=== PATIENT | female | born 1955 | race Caucasian/White ===

== ENCOUNTER 2022-08-07 14:52 | Emergency (ER) | payer MEDICARE, OTHER, SELFPAY ==
[2022-08-07 15:30] VITALS: BP 131/86; PULSE 86; RESP 16; TEMP 36.6; O2SAT 97; BMI 35.2
[2022-08-07 15:43] LABS: Apearance,Urine Cloudy (Clear); Bilirubin,Urine 1+ (Negative); Blood, Urine Negative (Negative); Color,Urine Red (Yellow); Glucose,Urine (UA) 100 (Negative); Ketones,Urine 15 (Negative); PH,Urine 6.5 (5.0-8.5); Protein,Urine 1+ (Negative); Urobilinogen,Urine >=8 EU/dl (0.2)
[2022-08-07 15:44] LABS: UTC Leukocyte Esterase,Urine 3+ (Negative); UTC Nitrate,Urine Positive (Negative)
--- NOTE | 2022-08-07 16:13 | EXP.UTC ---
Discharge Plan Disposition Patient Disposition: Home, Self-Care Condition: Good Prescriptions Prescriptions: New cefdinir 300 mg capsule 300 mg PO BID 7 Days Qty: 14 0RF phenazopyridine [Pyridium] 200 mg tablet 200 mg PO Q8H 2 Days Qty: 6 0RF Referrals Follow up/Referrals: Jeremias Tay [Primary Care Provider] - See instructions Activity Restrictions/Add. Instructions Additional Instructions/Restrictions: *Increase fluids. Water not Soda or Tea *Start antibiotic immediately and be sure to take as ordered for the FULL length of time although you should start to see improvement over the next 48 hours *Pyridium as needed Remember this medication will turn your urine . This is normal but it will stain what ever it gets on *You should not use Pyridium for more than 48 hours. If so , follow up with your primary physician to review urine culture and ensure that antibiotic is adequate for infection *Be SURE to follow up anytime for new or worsening symptoms with your family doctor. AND in 48 hours for urine culture results with your family doctor, if you do not have a doctor then you may call back to the [facility] for urine culture results and further treatment. We do recommend that you choose and establish care with a Primary Care Physician. ?AND follow up with them ?in 10-14 days to repeat UA to ensure infection is resolved and blood no longer present *Be sure to let your PCP know that we sent urine cultures from the [facility] so they can follow up to ensure that you area the on the correct antibiotic Call your doctor office and make appointment for 48 hours (2 days from today) ?to follow up and get the results of your urine culture and further treatment Clinical Impressions Clinical Impression: UTI (urinary tract infection) Qualifiers: Urinary tract infection type: site unspecified Hematuria presence: with hematuria Qualified Code(s): N39.0 - Urinary tract infection, site not specified Instructions Patient Instructions: Urinary Tract Infection, DI for Urinary Tract Infection (UTI) Discharge ED Provider[place] [facility] [place] General Stated complaint: possible UTI Mode of Arrival: Ambulatory Source of Information: Patient Limitations: No Limitations Time Seen by Provider: 08/07/22 16:13 Description of Symptoms (Recalled from Triage Doc. by RN): PATIENT C/O URGENCY AND BURNING WITH URINATION X 2 DAYS HEENT Symptoms (Recalled from RN notes): No Resp Symptoms (Recalled from RN notes): No Skin Symptoms (Recalled from RN notes): No MS Symptoms (Recalled from RN notes): No Functional Status (Recalled from RN notes): WNL History of Present Illness Provider Complaint: Patient state that for the last couple of days she has been having burning with urination and feeling of urgency and frequency States that she feels like she does when she has a UTI Related Data Previous Rx's Medication Instructions Recorded cefdinir 300 mg capsule 300 mg PO BID 7 days #14 caps 08/07/22 phenazopyridine 200 mg tablet 200 mg PO Q8H pain 2 days #6 tabs 08/07/22 (Pyridium) Allergies Allergy/AdvReac Type Severity Reaction Status Date / Time No Known Allergies Allergy Verified 08/07/22 15:49 Worker's Comp Is this a Worker's Comp case?: No PFSH [facility] Medical History (Updated 08/07/22 @ 16:15 by Katie Bowen APRN) Diabetes mellitus type 1 Hypertension Surgical History (Updated 08/07/22 @ 15:45 by Callie Goode RN) History of cholecystectomy Social History (Updated 08/07/22 @ 15:46 by Callie Goode RN) Smoking Status: Unknown if ever smoked alcohol intake: never current occupational status: other Travel in the last 8 weeks: None ROS Obtained: Yes All systems reviewed & no additional complaints except as documented and Yes Systems reviewed as appropriate & no additional complaints except as documented Constitutional Constitutional: Reports system reviewed and no additional complaints, except as documented, Rep
[2022-08-07 16:20] VITALS: BP 131/86; PULSE 86; RESP 16; TEMP 36.6; O2SAT 97
== END 2022-08-07 16:22 | disposition home or self-care (01) ==
PROVIDERS: Emergency Provider Nurse Practitioner; PCP Pediatrics
DX: N39.0 Urinary tract infection, site not specified (principal)
CPT/HCPCS: 81003; 99212; G0463

== ENCOUNTER 2023-05-18 15:51 | Emergency (ER) | payer MEDICARE, OTHER, SELFPAY ==
--- NOTE | 2023-05-18 15:55 | XR_ITS ---
FINAL REPORT CLINICAL HISTORY: PAIN COMPARISON: None FINDINGS: 3 views right knee: There is no acute fracture or dislocation. There is mild degenerative change of the medial and patellofemoral compartments. There is no soft tissue abnormality. IMPRESSION: Mild degenerative change, no acute abnormality. Reviewed, Interpreted and Dictated by Emily Quan MD Transcribed by Lidia Taylor Authenticated and [facility]
[2023-05-18 16:40] VITALS: BP 168/88; PULSE 70; RESP 20; TEMP 36.7; O2SAT 97; BMI 34.5
--- NOTE | 2023-05-18 17:28 | EXP.UTC ---
Discharge Plan Disposition Patient Disposition: Home, Self-Care Condition: Good Prescriptions Prescriptions: No Action metformin 500 mg tablet 500 mg PO DAILY Patient Comments: TAKE 1 TABLET BY MOUTH EVERY DAY meloxicam 15 mg tablet 15 mg PO DAILY Patient Comments: TAKE 1 TABLET BY MOUTH EVERY DAY chlorthalidone 25 mg tablet 25 mg PO DAILY Patient Comments: TAKE 1 TABLET BY MOUTH EVERY DAY glimepiride 2 mg tablet 2 mg PO DAILY Patient Comments: TAKE 1 TABLET BY MOUTH EVERY DAY IN THE MORNING ramipril 10 mg capsule 10 mg PO DAILY Patient Comments: TAKE 1 CAPSULE BY MOUTH EVERY DAY Referrals Follow up/Referrals: Jeremias Tay [Primary Care Provider] - See instructions Activity Restrictions/Add. Instructions Additional Instructions/Restrictions: Take Tylenol arthritis as needed for pain. Keep appointment with PCP on Tuesday. Clinical Impressions Clinical Impression: Left knee DJD Qualifiers: Osteoarthritis type: unspecified Qualified Code(s): M17.12 - Unilateral primary osteoarthritis, left knee Instructions Patient Instructions: DI for Knee Pain Discharge ED Provider: Melissa Richardson [facility] [place] General Stated complaint: RT knee pain Mode of Arrival: Ambulatory Source of Information: Patient Limitations: No Limitations Time Seen by Provider: 05/18/23 17:28 Description of Symptoms (Recalled from Triage Doc. by RN): PATIENT C/O PAIN TO INSIDE OF RIGHT KNEE X 3-4 WEEKS. NO KNOWN INJURY HEENT Symptoms (Recalled from RN notes): No Resp Symptoms (Recalled from RN notes): No Skin Symptoms (Recalled from RN notes): No MS Symptoms (Recalled from RN notes): Yes Functional Status (Recalled from RN notes): WNL History of Present Illness Provider Complaint: Pt reports that her knee has been hurting for the last 3-4 weeks. She reports that she has had a history of arthritis, but this has hurt more than usual. Related Data Home Medications Medication Instructions Recorded Confirmed chlorthalidone 25 mg tablet 25 mg PO DAILY . 05/18/23 05/18/23 glimepiride 2 mg tablet 2 mg PO DAILY Diabetes 05/18/23 05/18/23 meloxicam 15 mg tablet 15 mg PO DAILY Pain 05/18/23 05/18/23 metformin 500 mg tablet 500 mg PO DAILY Diabetes 05/18/23 05/18/23 ramipril 10 mg capsule 10 mg PO DAILY . 07/26/23 07/26/23 Allergies Allergy/AdvReac Type Severity Reaction Status Date / Time No Known Allergies Allergy Verified 08/07/22 15:49 Worker's Comp Is this a Worker's Comp case?: No [facility] Disclaimer: The information contained in this section may have been updated after the patient was seen, as this information can be updated by other users. Medical History (Updated 05/18/23 @ 17:45 by Melissa Richardson APRN) Diabetes mellitus type 1 Hypertension Surgical History (Updated 08/07/22 @ 15:45 by Callie Goode RN) History of cholecystectomy Social History (Updated 08/07/22 @ 16:20 by Katie Bowen APRN) Smoking Status: Unknown if ever smoked alcohol intake: never current occupational status: other Travel in the last 8 weeks: None ROS Obtained: Yes All systems reviewed & no additional complaints except as documented Constitutional Constitutional: Reports system reviewed and no additional complaints, except as documented Eyes Eyes: Reports system reviewed and no additional complaints, except as documented ENT Ears, Nose, Mouth, and Throat: Reports system reviewed and no additional complaints, except as documented Cardiovascular Cardiovascular: Reports system reviewed and no additional complaints, except as documented Respiratory Respiratory: Reports system reviewed and no additional complaints, except as documented Gastrointestinal Gastrointestingal: Reports system reviewed and no additional complaints, except as documented Genitourinary Female Genitourinary: Reports system reviewed and no additional complaints, except as documented Musculosk
[2023-05-18 17:46] VITALS: BP 168/88; PULSE 70; RESP 20; TEMP 36.7; O2SAT 97
== END 2023-05-18 17:49 | disposition home or self-care (01) ==
PROVIDERS: Emergency Provider Nurse Practitioner Family; PCP Pediatrics
DX: M17.11 Unilateral primary osteoarthritis, right knee (principal); I10 Essential (primary) hypertension; E11.9 Type 2 diabetes mellitus without complications; Z79.84 Long term (current) use of oral hypoglycemic drugs
CPT/HCPCS: 73562; 99212; 99214; G0463

== ENCOUNTER 2023-09-06 09:01 | Emergency (ER) | payer MEDICARE, OTHER, SELFPAY ==
[2023-09-06 09:10] VITALS: BP 188/93; PULSE 64; RESP 18; TEMP 36.8; O2SAT 96; BMI 33.9
--- NOTE | 2023-09-06 09:16 | EXP.UTC ---
Discharge Plan Disposition Patient Disposition: Home, Self-Care Condition: Good Prescriptions Prescriptions: New phenazopyridine [Pyridium] 200 mg tablet 200 mg PO Q8H 2 Days Qty: 6 0RF benzonatate [benzonatate] 100 mg capsule 100 mg PO TIDP PRN (Reason: Cough) Qty: 30 0RF methylprednisolone 4 mg Tablets,Dose Pack 4 mg PO DIRECTED Qty: 21 0RF cefdinir 300 mg capsule 300 mg PO BID Qty: 20 0RF No Action metformin 500 mg tablet 500 mg PO DAILY Patient Comments: TAKE 1 TABLET BY MOUTH EVERY DAY meloxicam 15 mg tablet 15 mg PO DAILY Patient Comments: TAKE 1 TABLET BY MOUTH EVERY DAY chlorthalidone 25 mg tablet 25 mg PO DAILY Patient Comments: TAKE 1 TABLET BY MOUTH EVERY DAY glimepiride 2 mg tablet 2 mg PO DAILY Patient Comments: TAKE 1 TABLET BY MOUTH EVERY DAY IN THE MORNING ramipril 10 mg capsule 10 mg PO DAILY Patient Comments: TAKE 1 CAPSULE BY MOUTH EVERY DAY Referrals Follow up/Referrals: Jeremias Tay [Primary Care Provider] - See instructions Activity Restrictions/Add. Instructions Additional Instructions/Restrictions: Drink plenty of fluids. Take tylenol or ibuprofen for pain or fever. Take the medications as directed. Follow up with your regular doctor. GO TO THE ER FOR ANY WORSENING SYMPTOMS The pyridium will make your urine turn orange, this is an expected side effect. It will stain your clothes if it comes into contact with them. We will culture the urine. That will tell what bacteria is causing your infection and which antibiotics will treat it best. Sometimes the first antibiotic we prescribe turns out to not work against different bacteria. So, make sure you follow up within 3 days if you are not getting better. Clinical Impressions Clinical Impression: UTI (urinary tract infection), Sinusitis Instructions Patient Instructions: Sinusitis, DI for Sinusitis Discharge ED Provider: Joe Yanes [facility] General Stated complaint: possible UTI, congestion Time Seen by Provider: 09/06/23 09:16 History of Present Illness Provider Complaint: She states that for the past 1 week she has had sinus congestion and a productive cough. She states that for the past 3 days she has developed dysuria, low back pain and urinary frequency. Related Data Home Medications Medication Instructions Recorded Confirmed chlorthalidone 25 mg tablet 25 mg PO DAILY . 05/18/23 05/18/23 glimepiride 2 mg tablet 2 mg PO DAILY Diabetes 05/18/23 05/18/23 meloxicam 15 mg tablet 15 mg PO DAILY Pain 05/18/23 05/18/23 metformin 500 mg tablet 500 mg PO DAILY Diabetes 05/18/23 05/18/23 ramipril 10 mg capsule 10 mg PO DAILY . 05/18/23 05/18/23 Previous Rx's Medication Instructions Recorded benzonatate 100 mg capsule 100 mg PO TIDP PRN Cough #30 caps 09/06/23 cefdinir 300 mg capsule 300 mg PO BID #20 caps 09/06/23 methylprednisolone 4 mg tablets in 4 mg PO DIRECTED #21 tabs 09/06/23 a dose pack phenazopyridine 200 mg tablet 200 mg PO Q8H 2 days #6 tabs 09/06/23 (Pyridium) Allergies Allergy/AdvReac Type Severity Reaction Status Date / Time No Known Allergies Allergy Verified 09/06/23 09:25 [facility] Disclaimer: The information contained in this section may have been updated after the patient was seen, as this information can be updated by other users. Medical History (Updated 09/06/23 @ 09:48 by Joe Yanes APRN) Diabetes mellitus type 1 Hypertension Surgical History History of cholecystectomy Social History Smoking Status: Unknown if ever smoked alcohol intake: never current occupational status: other Travel in the last 8 weeks: None ROS Obtained: Yes All systems reviewed & no additional complaints except as documented Constitutional Constitutional: Reports chills and Report
[2023-09-06 09:19] LABS: Apearance,Urine Cloudy (Clear); Color,Urine Orange (Yellow); PH,Urine 5.5 (5.0-8.5); Protein,Urine Trace (Negative); Specific Gravity, Urine 1.025 (1.005-1.030)
[2023-09-06 09:20] LABS: Bilirubin,Urine 1+ (Negative); Blood, Urine Trace (Negative); Glucose,Urine (UA) 1+ (Negative); Ketones,Urine TRACE (Negative); UTC Leukocyte Esterase,Urine 3+ (Negative); UTC Nitrate,Urine Positive (Negative); Urobilinogen,Urine 2 EU/dl (0.2)
[2023-09-06 09:54] VITALS: BP 188/93; PULSE 64; RESP 18; TEMP 36.8; O2SAT 96
== END 2023-09-06 09:54 | disposition home or self-care (01) ==
PROVIDERS: Emergency Provider Nurse Practitioner Family; PCP Pediatrics
DX: N39.0 Urinary tract infection, site not specified (principal); B96.1 Klebsiella pneumoniae [K. pneumoniae] as the cause of diseases classified elsewhere; M54.59 Other low back pain; J01.90 Acute sinusitis, unspecified; R09.81 Nasal congestion; R05.9 Cough, unspecified; E11.9 Type 2 diabetes mellitus without complications; I10 Essential (primary) hypertension; Z79.84 Long term (current) use of oral hypoglycemic drugs
CPT/HCPCS: 81003; 87086; 99212; 99214; G0463

== ENCOUNTER 2023-11-15 17:19 | Emergency (ER) | payer MEDICARE, OTHER, SELFPAY ==
[2023-11-15 17:20] VITALS: BP 194/93; PULSE 76; RESP 18; TEMP 36.8; O2SAT 97; BMI 33.0
[2023-11-15 17:40] LABS: Apearance,Urine Clear (Clear); Bilirubin,Urine 3+ (Negative); Blood, Urine Negative (Negative); Color,Urine Orange (Yellow); Glucose,Urine (UA) 100 (Negative); Ketones,Urine 15 (Negative); Protein,Urine 1+ (Negative)
[2023-11-15 17:41] LABS: UTC Leukocyte Esterase,Urine 3+ (Negative); UTC Nitrate,Urine Positive (Negative); Urobilinogen,Urine >=8 EU/dl (0.2)
--- NOTE | 2023-11-15 17:47 | EXP.UTC ---
Discharge Plan Disposition Patient Disposition: Home, Self-Care Condition: Good Prescriptions Prescriptions: New phenazopyridine 200 mg Tablet 200 mg PO TID 2 Days Qty: 6 0RF ciprofloxacin HCl [Cipro] 500 mg tablet 500 mg PO BID 7 Days Qty: 14 0RF No Action metformin 500 mg tablet 500 mg PO DAILY Patient Comments: TAKE 1 TABLET BY MOUTH EVERY DAY chlorthalidone 25 mg tablet 25 mg PO DAILY Patient Comments: TAKE 1 TABLET BY MOUTH EVERY DAY glimepiride 2 mg tablet 2 mg PO DAILY Patient Comments: TAKE 1 TABLET BY MOUTH EVERY DAY IN THE MORNING ramipril 10 mg capsule 10 mg PO DAILY Patient Comments: TAKE 1 CAPSULE BY MOUTH EVERY DAY atorvastatin 20 mg tablet 20 mg PO DAILY Referrals Follow up/Referrals: Jeremias Tay [Primary Care Provider] - See instructions Activity Restrictions/Add. Instructions Additional Instructions/Restrictions: Drink plenty of fluids. Take tylenol or ibuprofen for pain or fever. Take the medications as directed. Follow up with your regular doctor. GO TO THE ER FOR ANY WORSENING SYMPTOMS The pyridium will make your urine turn orange, this is an expected side effect. It will stain your clothes if it comes into contact with them. We will culture the urine. That will tell what bacteria is causing your infection and which antibiotics will treat it best. Sometimes the first antibiotic we prescribe turns out to not work against different bacteria. So, make sure you follow up within 3 days if you are not getting better. Clinical Impressions Clinical Impression: UTI (urinary tract infection) Instructions Patient Instructions: Urine Culture, DI for Urinary Tract Infection (UTI), Phenazopyridine Discharge ED Provider: Joe Yanes [facility] General Stated complaint: poss UTI Mode of Arrival: Ambulatory Source of Information: Patient Limitations: No Limitations Time Seen by Provider: 11/15/23 17:47 Description of Symptoms (Recalled from Triage Doc. by RN): Pt's symptoms are pressure with urination, and buring with urination HEENT Symptoms (Recalled from RN notes): No Resp Symptoms (Recalled from RN notes): No Skin Symptoms (Recalled from RN notes): No MS Symptoms (Recalled from RN notes): No Functional Status (Recalled from RN notes): n/a History of Present Illness Provider Complaint: She states that for the past 3 days she has had low back pain, dysuria, and urinary frequency. Related Data Home Medications Medication Instructions Recorded Confirmed chlorthalidone 25 mg tablet 25 mg PO DAILY . 05/18/23 11/15/23 glimepiride 2 mg tablet 2 mg PO DAILY Diabetes 05/18/23 11/15/23 metformin 500 mg tablet 500 mg PO DAILY Diabetes 05/18/23 11/15/23 ramipril 10 mg capsule 10 mg PO DAILY . 05/18/23 11/15/23 atorvastatin 20 mg tablet 20 mg PO DAILY 11/15/23 11/15/23 Previous Rx's Medication Instructions Recorded ciprofloxacin HCl 500 mg tablet 500 mg PO BID 7 days #14 tabs 11/15/23 (Cipro) phenazopyridine 200 mg tablet 200 mg PO TID 2 days #6 tabs 11/15/23 Allergies Allergy/AdvReac Type Severity Reaction Status Date / Time No Known Allergies Allergy Verified 11/15/23 17:44 Worker's Comp Is this a Worker's Comp case?: No [facility] Disclaimer: The information contained in this section may have been updated after the patient was seen, as this information can be updated by other users. Medical History (Updated 11/15/23 @ 18:02 by Joe Yanes APRN) Diabetes mellitus type 1 Hypertension Surgical History History of cholecystectomy Social History Smoking Status: Unknown if ever smoked alcohol intake: never current occupational status: other Travel in the last 8 weeks: None ROS Obtained: Yes All systems reviewed & no additional complaints except as documented Constitutional Constitutional: Reports system reviewed and no additional complaints, except as documented, Denies chills and Denies fever(s) Eyes Eyes: Denies eye discharge ENT Ears, Nose, Mouth, and Throat: Denies dysphagia, Denies sore throat and Denies throat swelling Cardiovascular Cardiovascular: Denies chest pain and Denies dyspnea Respiratory Respiratory: Denies chest congestion, Denies cough and Denies dyspnea Gastrointestinal Gastrointestingal: Denies abdominal pain, constipation, diarrhea, dysphagia, nausea or vomiting Genitourinary Female Genitourinary: Reports as per HPI, Reports dysuria, Reports urinary frequency, Denies urinary incontinence, Reports urinary hesitancy and Reports urinary urgency Musculoskeletal Musculoskeletal: Denies arthralgias and Reports back pain Integumentary/Breasts Skin/Breast: Denies rash Neurologic Neurologic: Denies paresthesias Allergic/Immunologic Allergic/Immunologic: Denies throat swelling Physical Exam General General appearance: alert and in no apparent distress Head Head exam: atraumatic and normocephalic Eye Eye exam: Present normal appearance, PERRL and EOMI ENT ENT exam: Present normal exam, mucous membranes moist, TM's normal bilaterally and normal external ear exam Neck Neck exam: Present normal inspection, full ROM and trachea midline; Absent tenderness, meningismus or lymphadenopathy Chest Chest inspection: Present normal inspection and symmetric chest wall rise; Absent tenderness Respiratory Respiratory exam: Present normal lung sounds bilaterally; Absent respiratory distress, wheezes or stridor Cardiovascular Cardiovascular exam: Present regular rate, normal rhythm and normal heart sounds Abdominal Exam Abdominal exam: Present soft and normal bowel sounds; Absent distention, tenderness, guarding, rebound, rigidity, incision, psoas sign, obturator sign, heel tap sign, Stevens's sign, Rovsing's sign or tenderness at McBurney's Point Extremities Exam Extremities exam: Present normal inspection, full ROM and normal capillary refill; Absent tenderness, edema, joint swelling, calf tenderness or cyanosis Back Exam Back exam: Present normal inspection and full ROM; Absent tenderness, CVA tenderness (R) or CVA tenderness (L) Neurological Exam Neurological exam: Present alert, oriented X3 and normal gait Psychiatric Psychiatric exam: Present normal affect and normal mood Skin Skin exam: Present warm, dry, intact and normal color Lymphatic Lymphatic Findings: no adenopathy Medical Decision Making Medical Records Medical records reviewed: No I reviewed the patient's medical records. Ramakrishna Inquiry Pt receiving controlled substance: No Vital Signs: 11/15/23 17:20 Temperature 98.2 F Temperature Source Oral Pulse Rate [Right Radial] 76 Respiratory Rate 18 Blood Pressure [Right Arm] 194/93 H Blood Pressure Mean [Right Arm] 126 Blood Pressure Source [Right Arm] Automatic Cuff Blood Pressure Position [Right Arm] Sitting 02 Sat by Pulse Oximetry 97 Oxygen Delivery Method Room Air Lab Data Lab results reviewed: Yes I reviewed the patient's lab results. Lab Results 11/15/23 17:38: Urine Color [place], Urine Appearance Clear, Urine pH 5.0, Ur Specific [place] 1.020, Urine Protein 1+, Urine Glucose (UA) 100, Urine Ketones 15, Urine Blood Negative, Urine Nitrate Positive A, Urine Bilirubin 3+ A, Urine Urobilinogen >=8, Ur Leukocyte Esterase 3+ A Orders (Tests/Meds): ORDERS Category Date Time Status Urine Culture Stat Micro 11/15/23 17:31 Received
[2023-11-15] MEDS: levoFLOXacin 500MG TAB 500 MG PO (18:09)
[2023-11-15 18:21] VITALS: BP 194/93; PULSE 76; RESP 18; TEMP 36.8; O2SAT 97
== END 2023-11-15 18:21 | disposition home or self-care (01) ==
PROVIDERS: Emergency Provider Nurse Practitioner Family; PCP Pediatrics
DX: N39.0 Urinary tract infection, site not specified (principal); B96.89 Other specified bacterial agents as the cause of diseases classified elsewhere; M54.59 Other low back pain; I10 Essential (primary) hypertension; E11.9 Type 2 diabetes mellitus without complications; Z79.84 Long term (current) use of oral hypoglycemic drugs
CPT/HCPCS: 81003; 87086; 99212; 99214; G0463

== ENCOUNTER 2025-05-10 13:15 | Outpatient (CLI) | payer MEDICARE, OTHER, SELFPAY ==
--- OUTSIDE RECORDS SUMMARY | 2025-05-10 13:19 | XMS_ITS | Encounter Summary ---
Author Organization [facility] Address [address] [place] [address] Care Team Providers Care Water Server Name Role Phone Jeremias Tay MD Primary Care Provider [phone] Encounter Details Date Type Department Care Team (Late st Contact Info) Description 03/20/2025 [facility] [address] [place] [address] Lucy Padilla, SARA [address] [place] [address] Social History Tobacco Use Types Packs/Day Years Used Date Smoking Tobacco: Never Passive Smoke Exposure: Never Smokeless Tobacco: Never Alcohol Use Standard Drinks/Week Comments No 0 (1 standard drink = 0.6 oz pur e alcohol) PHQ-2 Answer Date Recorded PHQ-2 Total Score 0 07/12/2024 Sexually Active Control Partners Comments Yes Male Comments No Sex and Gender Information Value Date Recorded Sex Assigned at Not on file Legal Sex Female 6:00 PM EDT Gender Identity Not on file Sexual Orientation Not on file documented as of this encounter Functional Status * Is the person deaf or does he/she have serious difficulty hearing? Answer Date of Assessment Author No 07/12/2024 2:31 PM EDT Manolo Crane CCMA * Is the person blind or does he/she have serious difficulty seeing even when wearing glasses? Answer Date of Assessment Author No 07/12/2024 2:31 PM EDT Manolo Crane CCMA * Does this person have serious difficulty walking or climbing stairs? Answer Date of Assessment Author No 07/12/2024 2:31 PM EDT Rosa Maria Manolo GOLDY vivasSabi * Does this person have difficulty dressing or bathing? Answer Date of Assessment Author No 07/12/2024 2:31 PM EDT Manolo Crane ortega SOWMYA * Because of a physical, mental or emotional condition, does this person have difficulty doing errands alone such as visiting a doctor's office or shopping? Answer Date of Assessment Author No 07/12/2024 2:31 PM EDT Manolo Crane GOLDY vivasSabi documented as of this encounter Mental Status * Because of a physical, mental or emotional condition, does this person have serious difficulty concentrating, remembering or making decisions? Answer Entry Date Author No 07/12/2024 2:31 PM EDT Manolo Crane CCMSabi documented in this encounter Miscellaneous Notes * Telephone Encounter - Clare Mabry MA - 03/20/2025 3:52 PM EDT Spoke with patient. Explained to her that last time she asked for a refill, we told her it would bethe last one since it has been almost a year since we have seen her in office. Informed her she could either come in to be seen or she could reach out to her primary care and see if they will fill it. She said she will call her primary care and will call back if they will not fill it for her. * Telephone Encounter - Marie Mensah, Clerical Staff - 03/20/2025 1:21 PM EDT Patient need diclofenac refill sent to [facility]. documented in this encounter Plan of Treatment Not on file documented as of this encounter Goals Goal Patient Goal Type Associated Problems Recent Progress Patient-Stated? Author Blood Pressure < 140/90 Blood Pressure 128/82(2024 3:14 PM EDT) No Roula Díaz CCMA Maintain a healthy diet, exercise regularly and maintain an ideal body weight General No Krista Conte LPN BMI (Calculated) < 30 General 32(02/28/2025 3:14 PM EDT) No Jeremias Tay MD HEMOGLOBIN A1C < 7.0 Result Component 6.8( 1:52 PM EDT) No Jeremias Tay MD documented as of this encounter Visit Diagnoses Not on filedocumented in this encounter Additional Health Concerns Assessment Noted Time A fall risk assessment has been complete d for the patient 05/17/2024 11:02 AM EDT documented as of this encounter Care Teams Water Server Relationship Specialty Start Date End Date Jeremias Tay MD [address] [place] [phone] PCP - General 09/16/09 documented as of this encounter
--- OUTSIDE RECORDS SUMMARY | 2025-05-10 13:19 | XMS_ITS | Encounter Summary ---
Author Organization [place] [address] Care Team Providers Care Pet Caretaker Name Role Phone Jeremias Tay MD Primary Care Provider [phone] Reason for Visit * Reason Onset Date Comments Refill 03/21/2025 diclofenac sodiu m (VOLTAREN) 50 mg Oral Tablet, Delayed Release (E.C.) Encounter Details Date Type Department Care Team (Late st Contact Info) Description 03/21/2025 Telephone [place] [address] Jeremias Tay MD [address] [place] [address] Refill (diclofenac sodium (VOLTAREN) 50 mg Oral Tablet, Delayed Release (E.C.)) Social History Tobacco Use Types Packs/Day Years [...] Crane CCMA * Does this person have difficulty dressing or bathing? Answer Date of Assessment Author No 07/12/2024 2:31 PM EDT Manolo Crane CCMA * Because of a physical, mental or emotional condition, does this person have difficulty doing errands alone such as visiting a doctor's office or shopping? Answer Date of Assessment Author No 07/12/2024 2:31 PM EDT Manolo Crane CCMA documented as of this encounter Mental Status * Because of a physical, mental or emotional condition, does this person have serious difficulty concentrating, remembering or making decisions? Answer Entry Date Author No 07/12/2024 2:31 PM EDT Manolo Crane CCMA documented in this encounter Ordered Prescriptions Prescription Sig Dispense Quantity Refills Last Filled Start Date End Date diclofenac sodium (VOLTAREN) 50 mg Oral Tablet, Delayed Release (E.C.)Indications:Pr imary osteoarthritis of right knee Take 1 Tablet by mouth daily. 30 Tablet 1 03/21/2025 documented in this encounter Miscellaneous Notes * Telephone Encounter - Roxana Crane CCMA - 03/21/2025 11:55 AM EDT Rx sent * Telephone Encounter - Ysabel Hassan, Clerical Staff - 03/21/2025 11:43 AM EDT Select the most appropriate reason for this telephone message: Medication Refill Who is requesting the refill: Patient Medication(s)Name/Dosage/Frequency: diclofenac sodium (VOLTAREN) 50 mg Oral Tablet, Delayed Release (E.C.) 30 Tablet 0 02/15/2025 -- Sig - Route: Take 1 Tablet by mouth daily. - Oral Did patient contact the pharmacy first: No How many days left on hand: 0 Future appt date w/ prescribing provider: none Pharmacy & Location: [facility]/pharmacy #[id number] [place] [address] [address] [facility] - [phone] Return Method of Communication: Phone Call Additional Information: pt is no longer seeing the dr for her arthritis and the dr told her that ptcould ask her PCP to refill the medication so pt doesn't have to make a long drive to her anymore -pt is wanting to know if she will need to make an appt for pcp to fill med - please advise pt - thank you documented in this encounter Plan of Treatment [...] documented as of this encounter Visit Diagnoses Diagnosis Primary osteoarthritis of right knee Primary localized osteoarthrosis, lower leg documented in this encounter Discontinued Medications Medication Sig Discontinue Reason Start Date End Da te diclofenac sodium (VOLTAREN) 50 mg Oral Tablet, Delayed Release (E.C.)Indications:Primary osteoarthritis of right knee Take 1 Tablet by mouth daily. Reorder 02/15/2025 03/21/2025 documented as of this encounter Additional Health Concerns Assessment Noted Time A fall risk assessment has been complete d for the patient 05/17/2024 11:02 AM EDT documented as of this encounter Care Teams Pet Caretaker Relationship Specialty Start Date End Date Jeremias Tay MD [address] [place] [address] PCP - General 09/16/09 documented as of this encounter
--- OUTSIDE RECORDS SUMMARY | 2025-05-10 13:19 | XMS_ITS | Encounter Summary ---
Author Organization [place] [address] Care Team Providers Care Portrait Painter Name Role Phone Jeremias Tay MD Primary Care Provider Reason for Visit * Reason Onset Date Comments Medication Refill 04/16/2025 Encounter Details Date Type Department Care Team (Late st Contact Info) Description 04/16/2025 Refill [facility] [place] [address] Jeremias Tay MD [address] [facility] [place] [address] Medication Refill Social History Tobacco Use Types Packs/Day Years [...] Tablet by mouth daily. 30 Tablet 1 04/17/2025 documented in this encounter Plan of Treatment [...] Take 1 Tablet by mouth daily. Reorder 03/21/2025 04/16/2025 documented as of this encounter Additional Health Concerns Assessment Noted Time A fall risk assessment has been complete d for the patient 05/17/2024 11:02 AM EDT documented as of this encounter Care Teams Portrait Painter Relationship Specialty Start Date End Date Jeremias Tay MD [address] [place] [address] PCP - General 09/16/09 documented as of this encounter
--- OUTSIDE RECORDS SUMMARY | 2025-05-10 13:19 | XMS_ITS | Encounter Summary ---
Author Organization [place] [address] Care Team Providers Care Deep Fat Cook Fry Name Role Phone Jeremias Tay MD Primary Care Provider [phone] Reason for Visit * Reason Onset Date Comments Central Order Completion Outreach 04/29/2025 Mammogram/Cologuard Encounter Details Date Type Department Care Team (Late st Contact Info) Description 04/29/2025 Patient Outreach SEP [facility] [address] [place] [address] Jerem[place] [address] Central Order Completion Outreach (Mammogram/Cologuard ) Social History Tobacco Use Types Packs/Day Years [...] PM EDT Manolo Crane ortega SOWMYA * Does this person have serious difficulty walking or climbing stairs? Answer Date of Assessment Author No 07/12/2024 2:31 PM EDT Manolo Crane SOWMYA * Does this person have difficulty dressing or bathing? Answer Date of Assessment Author No 07/12/2024 2:31 PM EDT Manolo Cranehien SOWMYA * Because of a physical, mental or emotional condition, does this person have difficulty doing errands alone such as visiting a doctor's office or shopping? Answer Date of Assessment Author No 07/12/2024 2:31 PM EDT Manolo Crane SOWMYA documented as of this encounter Mental Status * Because of a physical, mental or emotional condition, does this person have serious difficulty concentrating, remembering or making decisions? Answer Entry Date Author No 07/12/2024 2:31 PM EDT Manolo Cranehien SOWMYA documented in this encounter Progress Notes * Lacie Guzman RN - 05/07/2025 9:10 AM EDT SEP Order Completion Outcome Tracking Contact Attempt:: Final Mammogram Outcome:: Left Voicemail to Return Call at [phone] Cologuard Outcome:: Left Voicemail to Return Call at [phone] * Mica Agarwal RN - 04/29/2025 9:13 AM EDT SEP Order Completion Outcome Tracking Contact Attempt:: First Mammogram Outcome:: No Answer, Left Voicemail to Return Call at [phone], MyChart Message Cologuard Outcome:: No Answer, Left Voicemail to Return Call at [phone], MyChart Message documented in this encounter Plan of Treatment [...] documented as of this encounter Care Teams Deep Fat Cook Fry Relationship Specialty Start Date End Date Jeremias Tay MD [address] [place] [address] PCP - General 09/16/09 documented as of this encounter
--- OUTSIDE RECORDS SUMMARY | 2025-05-10 13:19 | XMS_ITS | Encounter Summary ---
Author Organization [place] [address] Care Team Providers Care Retail Shift Manager Name Role Phone Jeremias Tay MD Primary Care Provider [phone] Sakina Freeman RN Unavailable Unavailable Encounter Details Date Type Department Care Team (Late st Contact Info) Description 02/20/2008 Orders Only [facility]P [facility] [place] [address] [place] [address] Enmanuel Tavarez MD [address] [place] [address] Social History Tobacco Use Types Packs/Day Years Used Date Smoking Tobacco: Never Assessed Comments Unknown Sex and Gender Information Value Date Recorded Sex Assigned at Not on file Legal Sex Female 6:00 PM EDT Gender Identity Not on file Sexual Orientation Not on file documented as of this encounter Plan of Treatment Not on file documented as of this encounter Procedures Procedure Name Priority Date/Time Associated Diagnosis Comments NM CARDIOLOGY - HISTORICAL Routine 02/20/2008 12:00 AM EDT documented in this encounter Results * NM CARDIOLOGY - HISTORICAL (02/20/2008 12:00 AM EDT) Anatomical Region Laterality Modality Other 02/20/2008 Narrative 10/27/2011 1:16 AM EST NOTICE: This report was electronically copied on 12/12/2011 from historical data generated by a practice prior to that practice using [facility] for Medical Records. Performing Provider: TAVAREZ Enmanuel Tavarez MD IMG ECHO ORDERABLES Final Result documented in this encounter Visit Diagnoses Not on filedocumented in this encounter Additional Health Concerns Infection Onset Date Last Indicated Resolved Time R/O COVID-19 06/18/2021 06/18/2021 06/18/2021 8:08 PM EDT documented as of this encounter Care Teams Retail Shift Manager Relationship Specialty Start Date End Date Jeremias Tay MD [address] [place] [address] PCP - General 09/16/09 Sakina Freeman, RN Drawbench Operator Helper Registered Nurse 02/09/19 05/10/19 documented as of this encounter
--- OUTSIDE RECORDS SUMMARY | 2025-05-10 13:19 | XMS_ITS | Encounter Summary ---
Author Organization [facility] Address [address] [place] [address] Care Team Providers Care Internet Database Specialist Name Role Phone Jeremias Tay MD Primary Care Provider [phone] Encounter Details Date Type Department Care Team (Late st Contact Info) Description 02/15/2025 Telephone [facility] [address] [place] [address] Martin Butterfield MD [address] [place] [address] Social History Tobacco Use Types Packs/Day Years [...] Assessment Author No 07/12/2024 2:31 PM EDT Dudleyjames Manolo SOWMYA vivas * Does this person have difficulty dressing or bathing? Answer Date of Assessment Author No 07/12/2024 2:31 PM EDT Manolo Crane GOLDY vivasSabi * Because of a physical, mental or emotional condition, does this person have difficulty doing errands alone such as visiting a doctor's office or shopping? Answer Date of Assessment Author No 07/12/2024 2:31 PM EDT Roxana CraneGOLDYSabi documented as of this encounter Mental Status * Because of a physical, mental or emotional condition, does this person have serious difficulty concentrating, remembering or making decisions? Answer Entry Date Author No 07/12/2024 2:31 PM EDT Rosa Maria Manolo GOLDY vivasSabi documented in this encounter Miscellaneous Notes * Telephone Encounter - Clare Mabry MA - 02/15/2025 11:53 AM EDT Spoke with patient and refilled the prescription. * Telephone Encounter - Milad Patterson PA-C - 02/15/2025 11:44 AM EDT Patient has not been seen in almost a year. Let her know we can provide one more refill but after that will either need to be seen in office or taken over by her PCP. * Telephone Encounter - Randall Merrill MA - 02/15/2025 9:45 AM EDTSummary: Phone Call Pt called for a med refill: Diclofenac 50mg QD (30) [facility] She states I only have a few pills left Please advise documented in this encounter Plan of Treatment [...] documented as of this encounter Care Teams Internet Database Specialist Relationship Specialty Start Date End Date Jeremias Tay MD [address] [place] [address] PCP - General 09/16/09 documented as of this encounter
--- OUTSIDE RECORDS SUMMARY | 2025-05-10 13:19 | XMS_ITS | Encounter Summary ---
Author Organization [place] [address] Care Team Providers Care Multimedia Editor Name Role Phone Jeremias Tay MD Primary Care Provider [phone] Reason for Visit * Reason Onset Date Comments Symptoms (Only Use If Pt Pus hes Back On Scheduling A Visit) 03/14/2025 Possible UTI / Asking that m essage be sent Encounter Details Date Type Department Care Team (Late st Contact Info) Description 03/14/2025 Telephone [facility] [place] [address] [place] [address] Symptoms (Only Use If Pt Pushes Back On Scheduling A Visit) (Possible UTI / Asking that message be sent ) Social History Tobacco Use Types Packs/Day [...] No 07/12/2024 2:31 PM EDT Manolo Crane ortega, SOWMYA * Is the person blind or does he/she have serious difficulty seeing even when wearing glasses? Answer Date of Assessment Author No 07/12/2024 2:31 PM EDT Manolo Crane ortega SOWMYA * Does this person have serious difficulty walking or climbing stairs? Answer Date of Assessment Author No 07/12/2024 2:31 PM EDT Manolo Crane ortega SOWMYA * Does this person have difficulty dressing or bathing? Answer Date of Assessment Author No 07/12/2024 2:31 PM EDT Manolo Crane SOWMYA * Because of a physical, mental or emotional condition, does this person have difficulty doing errands alone such as visiting a doctor's office or shopping? Answer Date of Assessment Author No 07/12/2024 2:31 PM EDT Manolo Crane maohien SOWMYA documented as of this encounter Mental Status * Because of a physical, mental or emotional condition, does this person have serious difficulty concentrating, remembering or making decisions? Answer Entry Date Author No 07/12/2024 2:31 PM EDT Manolo Crane ortega SOWMYA documented in this encounter Ordered Prescriptions Prescription Sig Dispense Quantity Refills Last Filled Start Date End Date nitrofurantoin, macrocrystal-monohy drate, (MACROBID) 100 mg Oral CapsuleIndications: UTI (urinary tract infection), uncomplicated Take 1 Capsule by mouth 2 times daily for 7 days. 14 Capsule 03/14/2025 documented in this encounter Miscellaneous Notes * Telephone Encounter - Sharmila Godinez MA - 03/14/2025 2:24 PM EDT Patient notified * Telephone Encounter - Jeremias Tay MD - 03/14/2025 2:21 PM EDT Medications sent to [facility] * Telephone Encounter - Sharmila Godinez MA - 03/14/2025 2:06 PM EDT Please advise * Telephone Encounter - Bryn Dominguez MA - 03/14/2025 1:17 PM EDT Select the most appropriate reason for this telephone message: Symptoms Call Who is reporting the symptoms: Patient What symptom(s) is the patient experiencing: Vaginal pressure, urge to go, decreased urination. Patient did not want to give much other information, says I know what a UTI is How long have symptoms been present: 2 days Has the patient been seen for this:No If no, was an appointment/E-Visit offered/suggested? She declined scheduling, says she took a home UTI test, and it was positive. Asking that message be sent Has the patient tried anything to relieve the symptoms and did it help: Yes - OTC Azo with little to no relief If pain, what level on scale 1-10 (10 being the greatest): No pain Desired Outcome: RX Pharmacy & Location:[facility] [place] [address] [[id number]] Return Method of Communication: Phone Call Was patient transferred to Nurse Triage for additional help? N/A Additional Information: Thank you! documented in this encounter Plan of Treatment [...] as of this encounter Visit Diagnoses Diagnosis UTI (urinary tract infection), uncomplicated- Primary Urinary tract infection, site not specified documented in this encounter Additional Health Concerns Assessment Noted Time A fall risk assessment has been complete d for the patient 05/17/2024 11:02 AM EDT documented as of this encounter Care Teams Multimedia Editor Relationship Specialty Start Date End Date Jeremias Tay MD [address] [place], [place] [address] PCP - General 09/16/09 documented as of this encounter
--- OUTSIDE RECORDS SUMMARY | 2025-05-10 13:19 | XMS_ITS | Encounter Summary ---
Author Organization [place] [address] Care Team Providers Care Power Generation Equipment Repairer Name Role Phone Jeremias Tay MD Primary Care Provider [phone] Reason for Visit * Reason Onset Date Comments Symptoms (Only Use If Pt Pushes Back On Scheduli ng A Visit) 04/05/2025 UTI Encounter Details Date Type Department Care Team (Late st Contact Info) Description 04/05/2025 Telephone [facility] [place] [address] Jeremias Tay MD [facility] [place] [address] Symptoms (Only Use If Pt Pushes Back On Scheduling A Visit) (UTI ) Social History Tobacco Use Types Packs/Day [...] Last Filled Start Date End Date nitrofurantoin, macrocrystal-monoh ydrate, (MACROBID) 100 mg Oral Capsule Take 1 Capsule by mouth 2 times daily for 7 days. 14 Capsule 04/05/2025 documented in this encounter Miscellaneous Notes * Telephone Encounter - Roxana Crane CCMA - 04/05/2025 4:47 PM EDT Macrobid to pharmacy * Telephone Encounter - Zac Pendleton RMA - 04/05/2025 4:42 PM EDT Select the most appropriate reason for this telephone message: Symptoms Call Who is reporting the symptoms: Patient What symptom(s) is the patient experiencing: UTI , did home urine test today and show positive leukocytes. Having pressure urgency to urinate, not much comes out How long have symptoms been present: 1 day(s) ago Has the patient been seen for this:No If no, was an appointment/E-Visit offered/suggested? No, wants Rx sent Has the patient tried anything to relieve the symptoms and did it help: No If pain, what level on scale 1-10 (10 being the greatest): No pain Desired Outcome: RX Pharmacy & Location:[id number] [place] [address] [address] [facility] [phone] [[id number]] Return Method of Communication: Phone Call Was patient transferred to Nurse Triage for additional help? N/A Additional Information: N/A documented in this encounter Plan of Treatment [...] documented as of this encounter Care Teams Power Generation Equipment Repairer Relationship Specialty Start Date End Date Jeremias Tay MD [address] [place] [address] PCP - General 09/16/09 documented as of this encounter
--- OUTSIDE RECORDS SUMMARY | 2025-05-10 13:20 | XMS_ITS | Clinical Summary ---
Author Organization [facility] Address [address] [place] [address] Phone Care Team Providers Care Health Social Work Professor Name Role Phone Jeremias Tay MD Primary Care Provider [phone] Allergies No known active allergies Medications Blood Sugar Diagnostic Misc StripIndications:Ty pe 2 diabetes mellitus with diabetic nephropathy, without long-term current use of insulin (HCC) Test once daily 1 box 11 0 Active tiZANidine (ZANAFLEX) 4 mg Oral Tablet TAKE 1 TABLET BY MOUTH NIGHTLY 90 Tablet 1 5 Active metFORMIN (GLUCOPHAGE) 500 mg Oral TabletIndications:T ype 2 diabetes mellitus with diabetic nephropathy, without long-term current use of insulin (HCC) TAKE 1 TABLET BY MOUTH EVERY DAY 90 Tablet 2 5 Active chlorthalidone 25 mg Oral TabletIndications:E ssential hypertension TAKE 1 TABLET BY MOUTH EVERY DAY 90 Tablet 2 5 Active ramipriL (ALTACE) 10 mg Oral CapsuleIndications: Essential hypertension TAKE 1 CAPSULE BY MOUTH EVERY DAY 90 Capsule 3 5 Active glimepiride (AMARYL) 2 mg Oral TabletIndications:T ype 2 diabetes mellitus with diabetic nephropathy, without long-term current use of insulin (HCC) Take 1 Tablet by mouth every morning. 90 Tablet 1 5 Active cetirizine (ZYRTEC) 10 mg Oral TabletIndications:R ecurrent sinusitis TAKE 1 TABLET BY MOUTH EVERY DAY 90 Tablet 5 Active diclofenac sodium (VOLTAREN) 50 mg Oral Tablet, Delayed Release (E.C.)Indications:P rimary osteoarthritis of right knee Take 1 Tablet by mouth daily. 30 Tablet 1 5 Active nitrofurantoin, macrocrystal-monohy drate, (MACROBID) 100 mg Oral Capsule Take 1 Capsule by mouth 2 times daily for 7 days. 14 Capsule 5 04/12/20 25 Active Problems Problem Noted Date Diagnosed Date Primary osteoarthritis of both knees 06/16/2023 Assessment & Plan (06/16/2023 8:23 AM EDT): Plan to restart mobic Encouraged weight loss, nonweight bearing exercises Post-menopause 06/16/2023 Thrombocytopenia 11/07/2019 Assessment & Plan (07/12/2024 2:43 PM EDT): Lab Results Component Value Date PLT 177 03/02/2024 Stable without bleeding issues -continue to monitor. Assessment & Plan (01/01/2022 8:59 AM EST): Recheck CBC Lab Results Component Value Date WBC 6.3 07/31/2020 HGB 15.3 07/31/2020 HCT 44.8 07/31/2020 MCV 90.5 07/31/2020 PLT 134 (L) 07/31/2020 Assessment & Plan (11/07/2019 7:57 AM EST): Lab Results Component Value Date WBC 6.7 11/06/2019 HGB 14.5 11/06/2019 HCT 43.5 11/06/2019 MCV 90.2 11/06/2019 PLT 140 (L) 11/06/2019 Bradycardia 11/06/2019 Assessment & Plan (12/26/2020 11:06 AM EST): HR 40-50s on fitbit. Tired, but no dizziness. Will stop atenolol and monitor. Assessment & Plan (11/06/2019 2:13 PM EST): EKG done today does appear to reveal a sinus bradycardia with a baseline rate of 55. There are no other abnormalities noted. She is wearing a fit bit and upon review it looks like her heart rate does get up in the 60s or even low 70s with exercise which seems to be an appropriate response. I have asked her to hook her Fitbit into her phone fran so that records things continuously and we can get a better look at what her baseline rates are. But at this time given that it appears to be a sinus rhythm and she is asymptomatic would not recommend any further work-up. Type 2 diabetes mellitus wit hout complication, without long-term current use of insulin 03/06/2019 Overview (06/16/2023): Lab Results Component Value Date HGBA1C 7.2 (H) 01/01/2022 HGBA1C 5.7 (H) 07/31/2020 HGBA1C 5.7 (H) 11/06/2019 On metformin and Amaryl On Statin and ACEi for risk reduction Iris and Micro ordered today. Assessment & Plan (11/02/2024 10:16 AM EST): Assessment & Plan (01/01/2022 9:00 AM EST): Goal A1C: < 7.0 - Last A1c - 5.7 - 07/31/2020, needs rechecked today. - at goal Compliance: - compliant with diet and medications Retinopathy Screening: Retinopathy Not Present - Last Eye Exam - 05/10/2019 - wants to see eye doctor Nephropathy Assessment: - microalbumin screening completed in the past 12 months - done today Foot Assessment: Last Foot Exam Date - 07/31/2020 - no ulcers or pre-ulcers - no neuropathy Diet Advice: - discussed improving diet by reducing carbohydrates at today's visit ASA Therapy: - patient currently on aspirin Statin Therapy: declines statin Medication Management: - medication management decisions took place at today's visit (see orders) Assessment & Plan (03/06/2019 9:22 AM EDT): She is doing very well on her current treatment. Home blood sugars are running between 110s and 130s. This is a significant improvement from greater than 300 when she was first diagnosed. She continues to watch her diet closely. She will be meeting with the healthcare advocate after we complete our visit today. She is not having any signs of hypoglycemia. Unspecified essential hypertension Overview (12/17/2024): BP Readings from Last 3 Encounters: 12/17/24 (!) 164/110 11/28/24 140/86 11/02/24 132/84 On ACEi Assessment & Plan (12/17/2024 4:55 PM EST): BP rechecked and documented. Assessment & Plan (12/17/2024 4:55 PM EST): BP rechecked and documented Resolved Problems Problem Noted Date Diagnosed Date Resolved Date Severe obesity (BMI 35.0-39. 9) with comorbidity 07/05/2022 05/20/2023 Encounters Date Type Department Care Team Description 04/29/2025 Patient Outreach [facility] [address] [place] [address] Jeremias Tay MD Central Order Completion Outreach (Mammogram/Cologuar d) 04/16/2025 Refill [facility] [address] [place] [address] Jeremias Tay MD Medication Refill 04/05/[address] [place] [address] Jeremias Tay MD Symptoms (Only Use If Pt Pushes Back On Scheduling A Visit) (UTI ) 03/21/2025 Telephone [facility] [address] [place] [address] Jeremias Tay MD Refill (diclofenac sodium (VOLTAREN) 50 mg Oral Tablet, Delayed Release (E.C.)) 03/20/2025 Telephone [facility] [address] [place] [address] Lucy Padilla NP 03/14/2025 Telephone [facility] [address] [place] [address] Jeremias Tay MD Symptoms (Only Use If Pt Pushes Back On Scheduling A Visit) (Possible UTI / Asking that message be sent ) 02/28/2025 3:20 PM EDT Office Visit [address] [place] [phone] Jeremias Tay MD Tick bite of left front wall of thorax, sequela (Primary Dx) 02/22/[address] [place] [address] Jaye Patterson APRN Medication Refill 02/20/[address] [place] [address] Jeremias aTy MD Medication Refill 02/15/2025 Refill [facility] [address] [place] [id number] Martin Butterfield MD Medication Refill 02/15/[address] [place] [phone] Jeremias Tay MD Medication Refill 02/15/2025 Telephone [facility] [address] [employer] [address] [address] Martin Butterfield MD 02/15/[address] [place] [address] Jeremias Tay MD Medication Refill from Last 3 Months Immunizations Immunization Administration Dates Next Due Influenza Vaccine Quadrivalent 08/05/2017 Influenza Vaccine, Unspecified Formulation 08/28,07/18/2013 Surgical History Surgery Date Site/Laterality Comments CHOLECYSTECTOMY 05/29/2010 Medical History Medical History Date Comments Screening mammogram 2010 normal Hypertension Allergy Type 2 diabetes mellitus wit hout complication, without long-term current use of insulin (HCC) 03/06/2019 Primary osteoarthritis of both knees 06/16/2023 Family History Medical History Relation Name Comments Unknown Father Cancer Mother breast cancer Diabetes Mother Heart Disease Mother Relation Name Status Comments Brother Alive Father Maternal Grandfather Maternal Grandmother Mother Alive Paternal Grandfather Paternal Grandmother Social History Tobacco Use Types Packs/Day Years Used Date Smoking Tobacco: Never Passive Smoke Exposure: Never Smokeless Tobacco: Never Tobacco Cessation:Counseling Given: Not Answered Alcohol Use Standard Drinks/Week Comments No 0 (1 standard drink = 0.6 oz pur e alcohol) PHQ-2 Answer Date Recorded PHQ-2 Total Score 0 07/12/2024 Sexually Active Control Partners Comments Yes Male Comments No Sex and Gender Information Value Date Recorded Sex Assigned at Not on file Legal Sex Female 6:00 PM EDT Gender Identity Not on file Sexual Orientation Not on file Obstetrics History Last Filed Vital Signs Vital Sign Reading Time Taken Comments Blood Pressure 128/82 02/28/2025 3:14 PM EDT Pulse 78 02/28/2025 3:14 PM EDT Temperature 36.7 C (98 F) 02/28/2025 3:14 PM EDT Respiratory Rate 18 02/28/2025 3:14 PM EDT Oxygen Saturation 97% 02/28/2025 3:14 PM EDT Inhaled Oxygen Concentration - - Weight 89.8 kg (198 lb) 02/28/2025 3:14 PM EDT Height 167.6 cm (5' 6 ) 02/28/2025 3:14 PM EDT Body Mass Index 31.96 02/28/2025 3:14 PM EDT Plan of Treatment Health Maintenance Due Date Last Done Comments DTaP/TDaP/Td (1 - Tdap) 1976 Pneumococcal Vaccine 50+ (1 of 2 - PCV) 1976 Cologuard 2002 Colon Cancer Screening 2002 Colonoscopy 2002 FIT 2002 Sigmoidoscopy 2002 Virtual Colonography 2002 Zoster (1 of 2) 2007 RSV or 60+ (1 - Risk 60-74 years 1-dose series) 2017 Bone Density Screening 2022 Kidney Health: uACR 06/16/2024 06/16/2023, 5 COVID-19 Vaccine ( season) 2024 02/16/2021, 01/19/2021 Hemoglobin A1c 09/02/2024 03/02/2024, 05/25, 01/01/2022, Additional history exists Lipids 03/02/2025 03/02/2024, 05/25, 01/01/2022, Additional history exists Diabetic Eye Exam 06/18/2025 06/18/2023 Influenza Vaccine (#1) 2025 7, 08/03/2017, 08/28/2014, Additional history exists Wellness Exam Medicare 07/13/2025 07/12/2024 Kidney Health: eGFR 01/04/2026 01/04/2025, 03/02/2024, 06/16/2023, Additional history exists Breast Cancer Screening 02/05/2026 02/06/20, 11/08/2022, 08/13/2021, Additional history exists Hepatitis C Screening Completed 02/05/2019 Hepatitis B Vaccine Aged Out No longe r eligible based on patient's age to complete this topic Meningococcal B Vaccine Aged Out No l onger eligible based on patient's age to complete this topic Goals Goal Patient Goal Type Associated Problems [...] 1:52 PM EDT) No Jeremias Tay MD Procedures Procedure Name Priority Date/Time Associated Diagnosis Comments COMPREHENSIVE METABOLIC PANEL STAT 01/04/2025 10:54 PM EDT LIPID PANEL REFLEX Routine 03/02/2024 1: 52 PM EDT Unspecified essential hypertension HEMOGLOBIN A1C Routine 03/02/2024 1:52 PM EDT Type 2 diabetes mellitus without complication, without long-term current use of insulin (HCC) MM MAMMO DIGITAL KIYA SCREEN BILAT Routine 02/06/2024 9:11 AM EDT Encounter for screening mammogram for malignant neoplasm of breast MICROALBUMIN/CREATINI NE RATIO URINE Routine 06/16/2023 8:37 AM EDT Type 2 diabetes mellitus without complication, without long-term current use of insulin (HCC) HCV ANTIBODY SCREEN W/ REFLEX Routine 02/05/2019 8:52 AM EDT Need for hepatitis C screening test from Last 3 Months or Most Recently Relevant to Health Maintenance Results * (ABNORMAL) COMPREHENSIVE METABOLIC PANEL (01/04/2025 10:54 PM EDT) Sodium 132(L) 136 - 145 mmol/L 01/04/2025 11:16 PM EDT [facility] Potassium 3.3(L) 3.5 - 5.0 mmol/L 01/04/2025 11:16 PM EDT [facility] Chloride 96(L) 98 - 107 mmol/L 01/04/2025 11:16 PM EDT [facility] Total CO2 23 22 - 29 mmol/L 01/04/2025 11:16 PM EDT [facility] Anion Gap 13 7 - 16 mmol/L 01/04/2025 11:16 PM EDT [facility] Calcium 9.3 8.8 - 10.4 mg/dL 01/04/2025 11:16 PM EDT [facility] Glucose Lvl 229(H) 70 - 99 mg/dL 01/04/2025 11:16 PM EDT [facility] BUN 17 8 - 23 mg/dL 01/04/2025 11:16 PM EDT [facility] Creatinine 0.69 0.51 - 1.30 mg/dL 01/04/2025 11:16 PM EDT [facility] Albumin 4.3 3.2 - 4.6 gm/dL 01/04/2025 11:16 PM EDT [facility] Total Protein 7.4 6.4 - 8.3 gm/dL 01/04/2025 11:16 PM EDT [facility] Bili Total 0.7 0.2 - 1.3 mg/dL 01/04/2025 11:16 PM EDT [facility] ALT 22 <=41 U/L 01/04/2025 11:16 PM EDT [facility] AST 20 <=40 U/L 01/04/2025 11:16 PM EDT [facility] Alk Phos 66 36 - 123 U/L 01/04/2025 11:16 PM EDT [facility] eGFR (CKD-EPIcr 2020) 95 >=60 mL/min/1.7 3 m2 01/04/2025 11:16 PM EDT [facility] Comment:Estimated GFR was ca lculated using the CKD-EPIcr (2020) equation refit without race. The equation is recommended by the National Kidney Foundation - [place] [employer]ph[employer] Task Force. Blood VENOUS BLOOD / Unknown Venipuncture / Unknown 01/04/2025 10:54 PM EDT 01/04/2025 10:59 PM EDT us Lora Bernstein MD CHEMISTRY ORDERABLES Final Resul t [facility] [address] [id number] * (ABNORMAL) LIPID PANEL REFLEX (03/02/2024 1:52 PM EDT) Cholesterol 215(H) <200 mg/dL 03/03/2024 2:35 AM EDT [email or web address] Comment: < 200 Desirable 200 - 239 Borderline High >= 240 High Triglyceride 112 <150 mg/dL 03/03/2024 2:35 AM EDT [email or web address] Comment: < 150 Normal 150 - 199 Borderline High 200 - 499 High >= 500 Very High HDL 52 >=40 mg/dL 03/03/2024 2:35 AM EDT [email or web address] Comment: > 60 Optimal 40 - 60 Acceptable < 40 Low LDL Calculated 143(H) <100 mg/dL 03/03/2024 2:35 AM EDT [facility] Non-HDL-C Calculated 163(H) <=129 mg/dL 03/03/2024 2:35 AM EDT [facility] Comment: <130 Desirable 130-159 Above Desirable 160-189 Borderline High 190-219 High >= 220 Very High Fasting Specimen? No None 024 2:35 AM EDT [facility] Blood VENOUS BLOOD / Unknown Venipuncture / Unknown 03/02/2024 1:52 PM EDT 03/02/2024 1:52 PM EDT us Gordon Hussein MD CHEMISTRY ORDERABLES Final Result Performing Organization Address [facility] Co de Phone Number [facility] [employer] [address] , [place] [address] [facility] [address] [place] [id number] * (ABNORMAL) HEMOGLOBIN A1C (03/02/2024 1:52 PM EDT) Hgb A1C 6.8(H) 4.2 - 5.6 % 03/02/2024 10:29 PM EDT [facility] [employer] [facility] Est. Avg Glucose 148 mg/dL 03/02/2024 10:29 PM EDT [facility] Blood VENOUS BLOOD / Unknown Venipuncture / Unknown 03/02/2024 1:52 PM EDT 03/02/2024 1:52 PM EDT Narrative [facility] - 03/02/2024 10:29 PM EDT REFERENCE RANGE: Normal: 4.0-5.6% Pre-diabetes: 5.7-6.4% Provisional diagnosis of diabetes: >6.4% Hgb F>10% and anything which shortens red cell survival, such as hemolytic anemia, or unstable hemoglobin variants such as HbSS, HbSC, or HbCC, will lower the HbA1c value associated with a given level of glycemic control. us Jeremias Tay MD CHEMISTRY ORDERABLES Final Res ult Performing Organization Address City/[facility] Co de Phone Number [facility] [address] [facility] , [place] [address] * MM MAMMO DIGITAL KIYA SCREEN BILAT (02/06/2024 9:11 AM EDT) Anatomical Region Laterality Modality Breast Bilateral Mammography 02/07/2024 7:59 AM EDT Impressions 02/07/2024 7:59 AM EDT Negative ([id number]) ~ RECOMMENDATION: Routine screening mammogram in 1 year. ~ DISCLAIMER * Any patient with a palpable abnormality, unexplained by breast imaging, should be managed on clinical basis by the attending physician. * Breast imaging has a false negative rate of 15%. * The patient was notified by mail of the results of this examination. *The patient's information was entered into a reminder system with a target due date for the next mammogram, in accordance with the [place] [employer] and the Society of Breast Imaging recommendations. Narrative 02/07/2024 7:59 AM EDT Procedure:MM MAMMO DIGITAL KIYA SCREEN BILAT ~ Reason for exam: screening, asymptomatic. Z12.31-Encounter for screening mammogram for malignant neoplasm of [id number] ~ MM MAMMO DIGITAL KIYA SCREEN BILAT Bilateral CC and MLO view(s) were taken. There are scattered fibroglandular densities. Prior study comparison: Compared with prior studies the most recent being 11/08/22, 08/13/21 No mammographic evidence of malignancy. ~ Procedure Note Iker Card MD - 02/07/2024 Procedure:MM MAMMO DIGITAL KIYA SCREEN BILAT ~ Reason for exam: screening, asymptomatic. Z12.31-Encounter for screening mammogram for malignant neoplasm of [id number] ~ MM MAMMO DIGITAL KIYA SCREEN BILAT Bilateral CC and MLO view(s) were taken. There are scattered fibroglandular densities. Prior study comparison: Compared with prior studies the most recentbeing 11/08/22, 08/13/21 No mammographic evidence of malignancy. ~ IMPRESSION: Negative ([id number]) ~ RECOMMENDATION: Routine screening mammogram in 1 year. ~ DISCLAIMER * Any patient with a palpable abnormality, unexplained by breast imaging, should be managed on clinical basis by the attending physician. * Breast imaging has a false negative rate of 15%. * The patient was notified by mail of the results of this examination. *The patient's information was entered into a reminder system with atarget due date for the next mammogram, in accordance with the [place] [employer] and the Society of Breast Imaging recommendations. Jeremias Tay MD IMG MAMMOGRAPHY ORDERABLES Fin al Result * MICROALBUMIN/CREATININE RATIO URINE (06/16/2023 8:37 AM EDT) Urine Microalb <12.0 mg/L 06/16/2023 3:41 PM EDT [facility] [employer], [facility] Urine Creatinine 81.8 mg/dL 06/16/20 23 3:41 PM EDT [facility] [employer] Ur Microalb/Creat 023 3:41 PM EDT [employer] Comment: Because the albumin level is below the level of detection in this urine specimen, the laboratory is unable to calculate a reliable albumin/creatinine ratio. Microalbuminuria is unlikely if the urine albumin concentration is less than 20- 30 mg/L in a random specimen. Urine URINE SPECIMEN COLLECTION / Unknown 06/16/2023 8:37 AM EDT 06/16/2023 8:37 AM EDT Result [facility] Jaye [place] APRN URINE ORDERABLES Final Resu lt Performing Organization Address City/[facility]/ZIP Co de Phone Number [employer] [address] [facility] , [place] [address] * HEPATITIS C ANTIBODY - SCREENING (02/05/2019 8:52 AM EDT) Hep C Ab Non-Reactiv e Non-Reacti ve 02/05/2019 5:00 PM EDT [employer] Blood VENOUS BLOOD / Unknown Venipuncture / Unknown 02/05/2019 8:52 AM EDT 02/05/2019 8:52 AM EDT Jeremias Tay MD HEMATOLOGY ORDERABLES Final Re sult Performing Organization Address City/[facility]/ZIP Co de Phone Number [facility] [address] [facility] , [place] [address] from Last 3 Months or Most Recently Relevant to Health Maintenance Insurance [place]ICARE [place] PART A AND B [employer] MEDICARE [place] PART A AND B [employer] MEDICARE [place] PART A AND B [employer] * Guarantor: [facility],[place] [employer] ([employer]) Account Type Relation to Patient Date of Phone Billing Address Corporate Employer [address] [facility] Attn: [place] [address] Care Teams Health Social Work Professor Relationship Specialty Start Date End Date Jeremias [place] [address] [place] [address] [facility] - General 09/16/09
--- NOTE | 2025-05-10 13:22 | XR_ITS ---
FINAL REPORT CLINICAL HISTORY: Fall, rib pain COMPARISON: None FINDINGS: RIGHT RIBS WITH CHEST A single PA view of the chest and four views of the right ribs were obtained. The heart and mediastinum within normal limits. The lungs are clear. There is no pneumothorax. There is no acute displaced rib fracture. IMPRESSION: No acute cardiopulmonary process. No displaced rib fracture with no pneumothorax Reviewed, Interpreted and Dictated by Emily Quan MD Transcribed by Magalis Macias Authenticated and . [facility]
== END 2025-05-10 23:59 | disposition home or self-care (01) ==
PROVIDERS: PCP Pediatrics; Visit Provider Nurse Practitioner
DX: R07.81 Pleurodynia (principal); W19.XXXA Unspecified fall, initial encounter
CPT/HCPCS: 71101